=== PATIENT | male | born 1970 | race Caucasian/White ===

== ENCOUNTER 2022-10-13 12:40 | Emergency (ER) | payer OTHER, SELFPAY ==
[2022-10-13 13:07] VITALS: BP 154/95; PULSE 100; RESP 18; TEMP 36.2; O2SAT 99; BMI 26.4
== END 2022-10-13 14:55 | disposition left against medical advice (07) ==
PROVIDERS: PCP Physician Assistant Medical
DX: Z53.21 Procedure and treatment not carried out due to patient leaving prior to being seen by health care provider (principal)